=== PATIENT | male | born 1950 | race Caucasian/White ===

== ENCOUNTER 2016-12-29 06:05 | Emergency (ER) | payer MEDICARE, OTHER ==
[~2016-12-29 06:05] MED LIST: ALLERGY RELIEF10 M4 PO; ALLERGY RELIEF10 M7 PO; APPLE CIDER VI PO; ASTEPRO205.5 MCG/ NS; CARVEDILOL12.5 M1 PO; COLACE100 M1 PO; FENOFIBRATE160 MG PO; FISH OIL 1,2001 EAC4 PO; FLONASE16 G3 NS; FUROSEMIDE20 M1 PO; GLUCOSAMINE CH1 EAC8 PO; K-Dur; K-TAB ER20 ME1 PO; MILK OF MAGNESIA PO; ONE DAILY1 EAC4 PO; PERCOCET 5-3251 EACH PO; SIMVASTATIN20 M1 PO; [UNRECOGNIZED DRUG - OTHER] PO
[2016-12-29] MEDS ORDERED: ASPIRIN81 M1 PO (06:21)
[2016-12-29] MEDS ORDERED: NORCO 5-325 TA1 EACH PO (07:21)
== END 2016-12-29 07:55 ==
LOC: EDMED 06:05
PROC: 2W3DX1Z Immobilization of Left Lower Arm using Splint (ICD-10-PCS; principal; 2016-12-29)
PROC: 3E023BZ Introduction of Anesthetic Agent into Muscle, Percutaneous Approach (ICD-10-PCS; 2016-12-29)
DX: S52.502A Unspecified fracture of the lower end of left radius, initial encounter for closed fracture (principal); S62.115A Nondisplaced fracture of triquetrum [cuneiform] bone, left wrist, initial encounter for closed fracture; S40.012A Contusion of left shoulder, initial encounter; I10 Essential (primary) hypertension; Z87.891 Personal history of nicotine dependence; Z88.0 Allergy status to penicillin; Z79.82 Long term (current) use of aspirin; Z79.899 Other long term (current) drug therapy; W01.0XXA Fall on same level from slipping, tripping and stumbling without subsequent striking against object, initial encounter; Y92.019 Unspecified place in single-family (private) house as the place of occurrence of the external cause
CPT/HCPCS: J1170